=== PATIENT | female | born 1995 | race Caucasian/White ===

== ENCOUNTER → 2017-11-27 | Day surgery (SDC) | payer BC ==
[~2017-11-27] MED LIST: Lactated Ringers 1,000 ML IV SCH; Propofol 200 MG/20 ML SDV IV ONE
--- NOTE | 2017-11-30 08:10 | OR ---
DATE OF OPERATION: 11/27/2017 PREOPERATIVE DIAGNOSIS: PERSISTENT GASTROESOPHAGEAL REFLUX DISEASE. POSTOPERATIVE DIAGNOSIS: PERSISTENT GASTROESOPHAGEAL REFLUX DISEASE. SURGEON: Zeke Griffiths MD PROCEDURE: ESOPHAGOGASTRODUODENOSCOPY WITH BIOPSIES X2, LUIS CARLOS. ANESTHESIA: CASKET [employer] METAL due to persistent reflux. COMPLICATIONS: None. SPECIMEN: 1. Antral biopsy x1. 2. LUIS CARLOS. 3. Biopsy x1 EG junction. FINDINGS: 1. Full-length EGD. 2. Minimal prepyloric gastritis, nonspecific and mild. 3. Spontaneous GERD without significant distal esophagitis. No stricturing, ulceration, Rodriguez's changes, or significant hiatal hernia present. RECOMMENDATIONS: Medical followup with Dr. Ohara. INDICATIONS: The patient is having ongoing issues with heartburn. Dr. Ohara sent her for EGD. DESCRIPTION OF PROCEDURE: The patient was prepped and draped, placed in the left lateral decubitus position. A lubricated Olympus gastroscope was inserted over a bit and advanced to cricopharyngeus area and easily intubated into the esophagus. Esophageal lining was for the most part benign in its entire course. The Z-line was crisp around 40 cm without any gross hernia present. There was a lot of spontaneous reflux and no overt distal esophagitis. A little bit of inflammatory change right at the EG junction and couple spots of biopsy was taken. The scope was advanced into the stomach through the pylorus into the 2nd portion of the duodenum, this and the duodenal bulb were normal. The scope was brought back into the stomach and retroflexed, the upper fundus and cardia were benign. No gross hiatal hernia seen from below. Upon straightening, the rest of the fundus and most of the antrum were unremarkable. Around the pylorus, there was a small area of inflammation and did do a biopsy of that and a LUIS CARLOS test. Otherwise no other lesions were found. Air was suctioned. Scope removed without complication. CHANTELL/ALLY /[id number]
== END ==
LOC: CC.SDS 11:40
PROVIDERS: ATTEND Family Medicine
DX: K29.50 Unspecified chronic gastritis without bleeding (principal); K20.9 Esophagitis, unspecified; Z79.899 Other long term (current) drug therapy
CPT/HCPCS: 36415; 43239; 84703; 87081; J7120; J2704